=== PATIENT | male | born 1960 | race Caucasian/White ===

== ENCOUNTER 2018-05-06 19:06 | Observation (INO) | payer OTHER ==
[~2018-05-06] VITALS: Ht 175.3 cm; Wt 95.7 kg
[2018-05-06 19:33] LABS: HEMATOCRIT 40.2 % (38.0-50.0); HEMOGLOBIN 14.5 G/DL (12.5-16.6); MCH 33.8 PG (29.0-34.0); MCHC 36.1 G/DL (30.0-36.0); MCV 93.7 FL (86-99); PLATELET COUNT 132 K/uL (156-360); RBC DIS.WIDTH-CV 12.6 % (11.8-14.6); RBC DIS.WIDTH-SD 43.6 % (39-53); RED BLOOD COUNT 4.29 M/uL (4.00-5.50); WHITE BLOOD COUNT 6.5 K/uL (4.1-10.2)
[2018-05-06 19:46] LABS: ALBUMIN 3.3 g/dL (3.2-4.8)
[2018-05-06 19:47] LABS: CHLORIDE 107 mEq/L (99-109); POTASSIUM 3.3 mEq/L (3.7-5.4); SODIUM 139 mEq/L (136-147)
[2018-05-06 19:49] LABS: GLUCOSE 148 mg/dL (70-99)
[2018-05-06 19:51] LABS: TOTAL BILIRUBIN 0.4 mg/dL (0.0-1.0)
[2018-05-06 19:52] LABS: ALKALINE PHOSPHATASE 57 IU/L (3-129)
[2018-05-06 19:53] LABS: CREATININE 0.8 mg/dL (0.6-1.3)
[2018-05-06 19:54] LABS: AST (GOT) 45 IU/L (2-34); UREA NITROGEN (BUN) 12 mg/dL (9-23)
[2018-05-06 19:56] LABS: ALT (GPT) 34 IU/L (3-49)
[2018-05-06 19:59] LABS: GFR ESTIMATE (CALCULATED) > 59 mL/min/ (58.99-99999)
[2018-05-06 20:02] LABS: TROP-I INTERPRETATION NEGATIVE; TROPONIN-I < 0.01 ng/mL (0.0-0.30)
[2018-05-06] MEDS ORDERED: GABAPENTIN800 MG PO (20:43)
[2018-05-06] MEDS ORDERED: METFORMIN HCL1000 MG PO (20:44)
[2018-05-06] MEDS ORDERED: INVOKANA100 MG PO (20:45)
[2018-05-06] MEDS ORDERED: LO-DOSE ASPIRIN81 M2 PO (20:46)
[2018-05-06 22:14] LABS: SERUM ETHYL ALCOHOL 39 mg/dL
[2018-05-06 23:25] LABS: AMPHETAMINE NEGATIVE (500 ng/mL); BARBITURATES NEGATIVE (200 ng/mL); BENZODIAZEPINES NEGATIVE (150 ng/mL); BUPRENORPHINE NEGATIVE (10 ng/mL); COCAINE NEGATIVE (150 ng/mL); METHADONE NEGATIVE (200 ng/mL); METHAMPHETAMINE NEGATIVE (500 ng/mL); OPIATES (MORPHINE) PRESUMPTIVE POSITIVE (100 ng/mL); OXYCODONE PRESUMPTIVE POSITIVE (100 ng/mL); PHENCYCLIDINE NEGATIVE (25 ng/mL); PROPOXYPHENE NEGATIVE (300 ng/mL); THC CANNABINOIDS NEGATIVE (50 ng/mL); TRICYCLIC ANTIDEPRESSANTS NEGATIVE (300 ng/mL)
[2018-05-06 23:46] VITALS: BP 110/65
[2018-05-07 01:41] LABS: HEMATOCRIT 41.1 % (38.0-50.0); HEMOGLOBIN 14.9 G/DL (12.5-16.6); MCH 33.9 PG (29.0-34.0); MCHC 36.3 G/DL (30.0-36.0); MCV 93.6 FL (86-99); PLATELET COUNT 111 K/uL (156-360); RBC DIS.WIDTH-CV 12.4 % (11.8-14.6); RBC DIS.WIDTH-SD 42.8 % (39-53); RED BLOOD COUNT 4.39 M/uL (4.00-5.50); WHITE BLOOD COUNT 6.8 K/uL (4.1-10.2)
[2018-05-07 01:48] LABS: CHLORIDE 109 mEq/L (99-109); POTASSIUM 3.8 mEq/L (3.7-5.4); SODIUM 139 mEq/L (136-147)
[2018-05-07 01:49] LABS: GLUCOSE 135 mg/dL (70-99)
[2018-05-07 01:53] LABS: CREATININE 0.8 mg/dL (0.6-1.3); GFR ESTIMATE (CALCULATED) > 59 mL/min/ (58.99-99999)
[2018-05-07 01:54] LABS: UREA NITROGEN (BUN) 12 mg/dL (9-23)
[2018-05-07 02:01] LABS: TROP-I INTERPRETATION NEGATIVE; TROPONIN-I < 0.01 ng/mL (0.0-0.30)
[2018-05-07 04:17] VITALS: BP 107/69
[2018-05-07 08:20] VITALS: BP 120/74
[2018-05-07 08:52] LABS: TROP-I INTERPRETATION NEGATIVE; TROPONIN-I < 0.01 ng/mL (0.0-0.30)
[2018-05-07 09:53] LABS: HEMOGLOBIN A1c (GLYCOHEMOGLOB) 6.4 % (Below 5.7)
[2018-05-07 11:31] VITALS: BP 135/81
== END 2018-05-07 12:21 | disposition home or self-care (01) ==
LOC: EME 19:06 → EDBD 19:06 → EDOF 21:52 → 4SOUTH 21:52 → ENRESERV 21:58 → 4SOUTH 23:25
PROVIDERS: Emergency Medicine; Hospitalist
DX: R07.9 Chest pain, unspecified (principal); I95.9 Hypotension, unspecified; E86.9 Volume depletion, unspecified; E87.6 Hypokalemia; E11.9 Type 2 diabetes mellitus without complications; I25.10 Atherosclerotic heart disease of native coronary artery without angina pectoris; I44.0 Atrioventricular block, first degree; Z95.5 Presence of coronary angioplasty implant and graft; E78.5 Hyperlipidemia, unspecified; F17.210 Nicotine dependence, cigarettes, uncomplicated; I10 Essential (primary) hypertension; Z79.84 Long term (current) use of oral hypoglycemic drugs; Z79.82 Long term (current) use of aspirin; Z82.49 Family history of ischemic heart disease and other diseases of the circulatory system; Z83.3 Family history of diabetes mellitus; Z88.0 Allergy status to penicillin
CPT/HCPCS: 71045; 80048; 80053; 82948; 83036; 83880; 84484; 84999; 85027; 93005; 94799; 99281; 99285; G0378; G0480; J1815; J3010; J7030